=== PATIENT | female | born 1970 ===

== ENCOUNTER 2020-09-13 15:01 | Observation (INO) | payer BC, OTHER ==
[2020-09-13] MEDS ORDERED: Sodium Chloride 0.9% 2.5 ML Syringe FLUSH PRN (15:22)
[2020-09-13] MEDS ORDERED: Sodium Chloride 0.9% 1,000 ML IV ONE (15:22)
[2020-09-13] MEDS ORDERED: Sodium Chloride 0.9% 10 ML Syringe FLUSH PRN (15:22)
--- NOTE | 2020-09-13 15:29 | PCM.EKG ---
#1 Interpretation EKG Date: 09/13/20 Time: 15:30 Rhythm: NSR Rate (Beats/Min): 90 ST-T: Normal
--- NOTE | 2020-09-13 16:12 | EDM.PDOC ---
ED HPI GENERAL MEDICAL PROBLEM - General Chief Complaint: Respiratory Problem Stated Complaint: SOB Time Seen by Provider: 09/13/20 15:04 Source of Information: Reports: Patient History Limitations: Reports: No Limitations - History of Present Illness INITIAL COMMENTS - FREE TEXT/NARRATIVE: HISTORY AND PHYSICAL: History of present illness: The patient is a 49 year female who presents to the emergency room with complaints of shortness of breath that started at around 10:30 this a.m. She was diagnosed with Covid approximately 14 days ago and was scheduled to be out of quarantine at midnight tonight. For the last 3 days she has had increased chills, body aches, cough, decreased appetite and decreased fluid intake. She reports her cough as productive with yellow sputum. She did not appreciate any fever. She has taken NyQuil and Merlene-[place] for her symptoms. . Patient denies any fever, headache, change in vision, syncope or near syncope. Denies any chest pain, back pain. Denies any abdominal pain, nausea, vomiting, diarrhea, constipation or dysuria. Has not noted any blood in urine or stool. Review of systems: As per history of present illness and below otherwise all systems reviewed and negative. Past medical history: As per history of present illness and as reviewed below otherwise noncontr ibutory. Surgical history: As per history of present illness and as reviewed below otherwise noncontributory. Social history: See social history for further information Family history: As per history of present illness and as reviewed below otherwise noncontributory. Physical exam: General: Well developed and well nourished. Alert and orientated x 3. Nontoxic in appearance and in no acute distress. Vital signs are stable and have been reviewed by me. Nursing notes were reviewed. HEENT: Atraumatic, normocephalic, pupils equal and reactive bilaterally, negative for conjunctival pallor or scleral icterus, mucous membranes moist, throat clear, neck supple, nontender, trachea midline. No drooling or trismus noted. No meningeal signs. No hot potato voice noted. Lungs: Clear to auscultation bilaterally. No wheezes, rales, or rhonchi. Chest nontender. Normal work of breathing, no accessory muscles used. Heart: S1S2, regular rate and rhythm without overt murmur, gallops, or rubs. No JVD. No peripheral edema Abdomen: Soft, nondistended, nontender. Normoactive bowel sounds. Negative for masses or costovertebral tenderness. Skin: Intact, warm, dry. No lesions or rashes noted. Hematologic: No petechiae or purpra. Mucosa appropriate color and normal nail bed color and refill. Extremities: Atraumatic, moves all extremities per self without difficulty or deficits, negative for cords or calf pain. Neurovascular unremarkable. Neuro: Awake, alert, oriented. Cranial nerves II through XII unremarkable. Cerebellum unremarkable. Motor and sensory unremarkable throughout. Exam nonfocal. Psychiatric: Mood and affect are appropriate. Normal thought process. Answering questions appropriately. Notes: *This patient was seen and evaluated during the 2019 SARS-CoV-2 novel coronavirus pandemic period. Community viral transmission is ongoing at time of this encounter and the emergency department is operating under pandemic response procedures. After discussion with the patient she has agreeable to labs, chest x-ray, EKG, troponin, and IV fluids. The patient's D-dimer is elevated at 1.05, a PE study is ordered. The patient is informed. The patient is allergic to contrast and is unable to get CAT scan. Contacted Dr. Paris, hospitalist, regarding admission to hospital for overnight observation due to sudden onset of shortness of breath. Dr. Paris is agreeable with admission. The patient is informed and is agreeable with admission. The patient's potassium is low at 3.0 I have talked with the patient about today's findings, in addition to providing specific details for plan of care. Diagnostics: CBC, CMP, troponin, D-dimer, EKG, CXR Therapeutics: IV fluids Impression: Shortness of breath Hypokalemia Plan: Patient is to be admitted to observation. Definitive disposition and diagnosis as appropriate pending reevaluation and review of above. - Related Data Allergies Allergy/AdvReac Type Severity Reaction Status Date / Time Iodinated Contrast Media Allergy Cannot Verified 09/13/20 15:24 Remember Home Meds: Home Meds . [No Known Home Meds] 09/13/20 [History] Past Medical History - Past Health History Medical/Surgical History: Denies Medical/Surgical History - Infectious Disease History Infectious Disease History: Reports: None - Past Surgical History GI Surgical History: Reports: Cholecystectomy Female Surgical History: Reports: Section Social & Family History - Family History Family Medical History: No Pertinent Family History - Tobacco Use Tobacco Use Status *Q: Never Tobacco User - Recreational Drug Use Recreational Drug Use: No ED ROS GENERAL - Review of Systems Review Of Systems: Comprehensive ROS is negative, except as noted in HPI. ED EXAM, GENERAL - Physical Exam Exam: See Below (See below) Course - Vital Signs Last Recorded V/S: Last Vital Signs Temp 97.8 F 09/13/20 15:25 Pulse 104 H 09/13/20 15:25 Resp 18 09/13/20 15:25 BP 146/94 H 09/13/20 15:25 Pulse Ox 94 L 09/13/20 15:25 - Orders/Labs/Meds Orders: Active Orders 24 hr Category Date Time Status EKG Documentation Completion [RC] STAT Care 09/13/20 15:19 Active PE Chest [Ang Chest] [CT] Stat Exams 09/13/20 16:13 Ordered Sodium Chloride 0.9% [Saline Flush] Med 09/13/20 15:22 Active 10 ml FLUSH ASDIRECTED PRN Sodium Chloride 0.9% [Saline Flush] Med 09/13/20 15:22 Active 2.5 ml FLUSH ASDIRECTED PRN Saline Lock Insert [OM.PC] Stat Oth 09/13/20 15:22 Ordered Medication Orders Sodium Chloride (Sodium Chloride 0.9% 10 Ml Syringe) 10 ml FLUSH ASDIRECTED PRN PRN Reason: Keep Vein Open Last Admin: 09/13/20 15:47 Dose: 10 ml Documented by: [id number] Sodium Chloride (Sodium Chloride 0.9% 2.5 Ml Syringe) 2.5 ml FLUSH ASDIRECTED PRN PRN Reason: Keep Vein Open Last Admin: 09/13/20 15:47 Dose: 2.5 ml Documented by: [id number] Labs: Laboratory Tests 09/13/20 09/13/20 09/13/20 Range/Units 15:41 15:41 15:41 WBC 4.04 (4.0-11.0) K/uL RBC 4.78 (4.30-5.90) M/uL Hgb 12.7 (12.0-16.0) g/dL Hct 38.2 (36.0-46.0) % MCV 79.9 L (80.0-98.0) fL MCH 26.6 L (27.0-32.0) pg MCHC 33.2 (31.0-37.0) g/dL RDW Std Deviation 37.6 (28.0-62.0) fl RDW Coeff of Joanne 13 (11.0-15.0) % Plt Count 241 (150-400) K/uL MPV 9.60 (7.40-12.00) fL Neut % (Auto) 59.7 (48.0-80.0) % Lymph % (Auto) 29.0 (16.0-40.0) % Gregg % (Auto) 10.1 (0.0-15.0) % Eos % (Auto) 1.0 (0.0-7.0) % Baso % (Auto) 0.2 (0.0-1.5) % Neut # (Auto) 2.4 (1.4-5.7) K/uL Lymph # (Auto) 1.2 (0.6-2.4) K/uL Gregg # (Auto) 0.4 (0.0-0.8) K/uL Eos # (Auto) 0.0 (0.0-0.7) K/uL Baso # (Auto) 0.0 (0.0-0.1) K/uL Nucleated RBC % 0.0 /100WBC Nucleated RBCs # 0 K/uL D-Dimer, Quantitative 1.05 H (0.0-0.50) mg/L FEU Sodium 138 (136-145) mmol/L Potassium 3.0 L (3.5-5.1) mmol/L Chloride 102 (98-107) mmol/L Carbon Dioxide 24.6 (21.0-32.0) mmol/L BUN 15 (7.0-18.0) mg/dL Creatinine 0.7 (0.6-1.0) mg/dL Est Cr Clr Drug Dosing 69.83 mL/min Estimated GFR (MDRD) > 60.0 ml/min Glucose 102 (74-106) mg/dL Calcium 9.0 (8.5-10.1) mg/dL Total Bilirubin 0.3 (0.2-1.0) mg/dL AST 42 H (15-37) IU/L ALT 71 H (14-63) IU/L Alkaline Phosphatase 197 H (46-116) U/L Troponin I < 0.050 (0.000-0.056) ng/mL Total Protein 8.3 H (6.4-8.2) g/dL Albumin 3.2 L (3.4-5.0) g/dL Globulin 5.1 H (2.6-4.0) g/dL Albumin/Globulin Ratio 0.6 L (0.9-1.6) Meds: Medications Generic Name Dose Route Start Last Admin Trade Name Freq PRN Reason Stop Dose Admin Sodium Chloride 10 ml 09/13/20 15:22 09/13/20 15:47 Sodium Chloride 0.9% 10 Ml Syringe FLUSH 10 ml ASDIRECTED PRN Administration Keep Vein Open Sodium Chloride 2.5 ml 09/13/20 15:22 09/13/20 15:47 Sodium Chloride 0.9% 2.5 Ml Syringe FLUSH 2.5 ml ASDIRECTED PRN Administration Keep Vein Open Discontinued Medications Generic Name Dose Route Start Last Admin Trade Name Freq PRN Reason Stop Dose Admin Sodium Chloride 1,000 mls @ 999 mls/hr 09/13/20 15:22 09/13/20 15:46 Normal Saline IV 09/13/20 16:22 999 mls/hr .Bolus ONE Administration Departure - Departure Time of Disposition: 17:21 Disposition: Refer to Observation Condition: Good Clinical Impression: Shortness of breath - Discharge Information *PRESCRIPTION DRUG MONITORING PROGRAM REVIEWED*: Not Applicable *COPY OF PRESCRIPTION DRUG MONITORING REPORT IN PATIENT HERRERA: Not Applicable Referrals: PCP,None [Primary Care Provider] - Forms: ED Department Discharge Sepsis Event Note (ED) - Evaluation Sepsis Screening Result: No Definite Risk - Focused Exam Vital Signs: Vital Signs Temp Pulse Resp BP Pulse Ox 09/13/20 15:25 97.8 F 104 H 18 146/94 H 94 L - My Orders Last 24 Hours: My Active Orders 09/13/20 15:19 EKG Documentation Completion [RC] STAT 09/13/20 15:22 Sodium Chloride 0.9% [Saline Flush] 10 ml FLUSH ASDIRECTED PRN Sodium Chloride 0.9% [Saline Flush] 2.5 ml FLUSH ASDIRECTED PRN Saline Lock Insert [OM.PC] Stat 09/13/20 16:13 PE Chest [Ang Chest] [CT] Stat - Assessment/Plan Last 24 Hours: My Active Orders 09/13/20 15:19 EKG Documentation Completion [RC] STAT 09/13/20 15:22 Sodium Chloride 0.9% [Saline Flush] 10 ml FLUSH ASDIRECTED PRN Sodium Chloride 0.9% [Saline Flush] 2.5 ml FLUSH ASDIRECTED PRN Saline Lock Insert [OM.PC] Stat 09/13/20 16:13 PE Chest [Ang Chest] [CT] Stat
[2020-09-13 16:31] LABS: BLOOD UREA NITROGEN,BUN 15 mg/dL (7.0-18.0); CARBON DIOXIDE,CO2 24.6 mmol/L (21.0-32.0); CHLORIDE,CL 102 mmol/L (98-107); GLUCOSE RANDOM 102 mg/dL (74-106); SODIUM,NA 138 mmol/L (136-145)
--- NOTE | 2020-09-13 16:48 | CR ---
INDICATION: Shortness of breath TECHNIQUE: Chest 2 views. COMPARISON: None FINDINGS: Normal cardiomediastinal silhouette and pulmonary vasculature. Patchy infiltrates in a perihilar distribution. No effusion or pneumothorax. No acute osseous abnormality. IMPRESSION: Perihilar infiltrates concerning for infection, including COVID-19. Dictated by Joycelyn Allen MD @ Sep 13 2020 4:46PM Signed by Dr. Joycelyn Allen @ Sep 13 2020 4:47PM
--- NOTE | 2020-09-13 17:29 | PCM.HP.2 ---
H&P History of Present Illness - General Date of Service: 09/13/20 Admit Problem/Dx: Admission Diagnosis/Problem Admission Diagnosis/Problem Shortness of breath - History of Present Illness Initial Comments - Free Text/Narative: 49-year-old female admitted to the floor for hypoxia secondary to Covid infection. Patient states that she was diagnosed with Covid on September 01. Patient states that today was supposed to be her last day of quarantine. Patient states this morning that she began to have shortness of breath and a slight cough. Patient denies fever, chills, nausea, vomiting, abdominal pain, headaches. Patient denies loss of sense in taste at this time but did state that she did have the symptoms when she first got the Covid infection. Patient states decreased appetite and decreased fluid today. White blood cell count 4.4, chest x-ray reveals perihilar infiltrates concerning for infection. Hypokalemia noted with potassium level of 3.0. D-dimer elevated at 1.05, CT-A could not be performed as patient is allergic to contrast media, states shortness of breath and chest pain with contrast. Admit patient to the medical service for observation. Will monitor patient's oxygen saturation, respiratory rate as well as monitor oxygen saturation while patient is walking. Treatment to be tailored based on oxygen saturations. - Related Data Allergies/Adverse Reactions: Allergies Allergy/AdvReac Type Severity Reaction Status Date / Time Iodinated Contrast Media Allergy Cannot Verified 09/13/20 18:46 Remember Home Medications: Home Meds . [No Known Home Meds] 09/13/20 [History] Past Medical History - Past Health History Medical/Surgical History: Denies Medical/Surgical History - Infectious Disease History Infectious Disease History: Reports: None - Past Surgical History GI Surgical History: Reports: Cholecystectomy Female Surgical History: Reports: Section Social & Family History - Family History Family Medical History: No Pertinent Family History - Tobacco Use Tobacco Use Status *Q: Never Tobacco User - Recreational Drug Use Recreational Drug Use: No H&P Review of Systems - Review of Systems: Review Of Systems: See Below General: Reports: Chills, Decreased Appetite. Denies: Fever, Weakness Pulmonary: Reports: Shortness of Breath, Wheezing (mild), Cough Cardiovascular: Denies: Chest Pain, Edema Gastrointestinal: Denies: Abdominal Pain, Nausea, Vomiting Psychiatric: Denies: Confusion Neurological: Denies: Confusion Exam - Exam Exam: See Below - Vital Signs Vital Signs: Last Vital Signs Temp 97.8 F 09/13/20 15:25 Pulse 104 H 09/13/20 15:25 Resp 18 09/13/20 15:25 BP 146/94 H 09/13/20 15:25 Pulse Ox 94 L 09/13/20 15:25 Weight: 110 lb - Exam Quality Assessment: No: Supplemental Oxygen General: Alert, Oriented HEENT: Conjunctiva Clear Lungs: Clear to Auscultation, Wheezing (mild) Cardiovascular: Regular Rate, Regular Rhythm GI/Abdominal Exam: Normal Bowel Sounds, Soft, Non-Tender Extremities: No Pedal Edema Neuro Extensive - Mental Status: Alert, Oriented x3 Psychiatric: Alert - Patient Data Lab Results Last 24 hrs: Laboratory Results - last 24 hr 09/13/20 09/13/20 09/13/20 Range/Units 15:41 15:41 15:41 WBC 4.04 (4.0-11.0) K/uL RBC 4.78 (4.30-5.90) M/uL Hgb 12.7 (12.0-16.0) g/dL Hct 38.2 (36.0-46.0) % MCV 79.9 L (80.0-98.0) fL MCH 26.6 L (27.0-32.0) pg MCHC 33.2 (31.0-37.0) g/dL RDW Std Deviation 37.6 (28.0-62.0) fl RDW Coeff of Joanne 13 (11.0-15.0) % Plt Count 241 (150-400) K/uL MPV 9.60 (7.40-12.00) fL Neut % (Auto) 59.7 (48.0-80.0) % Lymph % (Auto) 29.0 (16.0-40.0) % Porter % (Auto) 10.1 (0.0-15.0) % Eos % (Auto) 1.0 (0.0-7.0) % Baso % (Auto) 0.2 (0.0-1.5) % Neut # (Auto) 2.4 (1.4-5.7) K/uL Lymph # (Auto) 1.2 (0.6-2.4) K/uL Porter # (Auto) 0.4 (0.0-0.8) K/uL Eos # (Auto) 0.0 (0.0-0.7) K/uL Baso # (Auto) 0.0 (0.0-0.1) K/uL Nucleated RBC % 0.0 /100WBC Nucleated RBCs # 0 K/uL D-Dimer, Quantitative 1.05 H (0.0-0.50) mg/L FEU Sodium 138 (136-145) mmol/L Potassium 3.0 L (3.5-5.1) mmol/L Chloride 102 (98-107) mmol/L Carbon Dioxide 24.6 (21.0-32.0) mmol/L BUN 15 (7.0-18.0) mg/dL Creatinine 0.7 (0.6-1.0) mg/dL Est Cr Clr Drug Dosing 69.83 mL/min Estimated GFR (MDRD) > 60.0 ml/min Glucose 102 (74-106) mg/dL Calcium 9.0 (8.5-10.1) mg/dL Total Bilirubin 0.3 (0.2-1.0) mg/dL AST 42 H (15-37) IU/L ALT 71 H (14-63) IU/L Alkaline Phosphatase 197 H (46-116) U/L Troponin I < 0.050 (0.000-0.056) ng/mL Total Protein 8.3 H (6.4-8.2) g/dL Albumin 3.2 L (3.4-5.0) g/dL Globulin 5.1 H (2.6-4.0) g/dL Albumin/Globulin Ratio 0.6 L (0.9-1.6) Result Diagrams: 09/13/20 15:41 09/13/20 15:41 Sepsis Event Note - Evaluation Sepsis Screening Result: No Definite Risk - Focused Exam Vital Signs: Vital Signs Temp Pulse Resp BP Pulse Ox 09/13/20 15:25 97.8 F 104 H 18 146/94 H 94 L - Problem List (1) COVID-19 SNOMED Code(s): 006337294 ICD Code: U07.1 - COVID-19 Status: Acute Current Visit: Yes (2) Shortness of breath SNOMED Code(s): 527411740 ICD Code: R06.02 - SHORTNESS OF BREATH Status: Acute Current Visit: Yes Problem List Initiated/Reviewed/Updated: Yes Orders Last 24hrs: Active Orders 24 hr Category Date Time Status Admission Status [Patient Status] [ADT] Stat ADT 09/13/20 17:19 Active EKG Documentation Completion [RC] STAT Care 09/13/20 15:19 Active PE Chest [Ang Chest] [CT] Stat Exams 09/13/20 16:13 Ordered Sodium Chloride 0.9% [Saline Flush] Med 09/13/20 15:22 Active 10 ml FLUSH ASDIRECTED PRN Sodium Chloride 0.9% [Saline Flush] Med 09/13/20 15:22 Active 2.5 ml FLUSH ASDIRECTED PRN Saline Lock Insert [OM.PC] Stat Oth 09/13/20 15:22 Ordered Medication Orders Sodium Chloride (Sodium Chloride 0.9% 10 Ml Syringe) 10 ml FLUSH ASDIRECTED PRN PRN Reason: Keep Vein Open Last Admin: 09/13/20 15:47 Dose: 10 ml Documented by: [id number] Sodium Chloride (Sodium Chloride 0.9% 2.5 Ml Syringe) 2.5 ml FLUSH ASDIRECTED PRN PRN Reason: Keep Vein Open Last Admin: 09/13/20 15:47 Dose: 2.5 ml Documented by: [id number] Assessment/Plan Comment:: Hypoxia secondary to COVID-19 infection. Patient admitted to observation. On admission patient has O2 saturation 94% on room air, RR 18, HR 89. Prior to starting treatment with dexamethasone and remdesivir we will monitor patient's O2 saturation overnight, and measure oxygen saturation when patient is walking to determine severity of hypoxia. DuoNebs Q4H, oxygen as needed titrate at or above 88% O2 saturation, prone positioning, incentive spirometry. Severe Vit D deficiency- 9.4, started on 5000iu daily Possible CAP secondary to viral infection- Levaquin 750mg Q24H Regular diet, Lovenox DVT prophylaxis, Tessalon pearls
[2020-09-13] MEDS ORDERED: Acetaminophen 325 MG Tab PO PRN (17:40)
[2020-09-13] MEDS ORDERED: Potassium Chloride 20 MEQ Tab.ER PO ONE (17:40)
[2020-09-13] MEDS ORDERED: Enoxaparin 40 MG/0.4 ML Syringe SUBCUT SCH (17:45)
[2020-09-13] MEDS ORDERED: Albuterol/Ipratropium 3.0-0.5 MG/3 ML Neb Soln NEB PRN (18:35)
[2020-09-13] MEDS ORDERED: Benzonatate 100 MG Cap PO PRN (18:56)
[2020-09-13] MEDS ORDERED: Levofloxacin/Dextrose 5%-Water 750 MG in Premix Bag 1 BAG IV SCH (19:15)
[2020-09-13] MEDS: Cholecalciferol (Vitamin D3) 25 MCG Tab PO SCH (20:05)
[2020-09-14 06:01] LABS: BLOOD UREA NITROGEN,BUN 8 mg/dL (7.0-18.0); CARBON DIOXIDE,CO2 25.4 mmol/L (21.0-32.0); CHLORIDE,CL 105 mmol/L (98-107); GLUCOSE RANDOM 95 mg/dL (74-106); POTASSIUM,K 3.8 mmol/L (3.5-5.1); SODIUM,NA 141 mmol/L (136-145)
[2020-09-14] MEDS: Cholecalciferol (Vitamin D3) 25 MCG Tab PO SCH (08:01)
--- NOTE | 2020-09-14 11:04 | PCM.DCSUM1 ---
Discharge Summary - Hospital Course Free Text/Narrative:: 49-year-old female admitted to the floor for shortness of breath secondary to Covid infection. Patient states that she was diagnosed with Covid on September 01. Patient states that today was supposed to be her last day of quarantine. Patient states this morning that she began to have shortness of breath and a slight cough. Patient denies fever, chills, nausea, vomiting, abdominal pain, headaches. Patient denies loss of sense in taste at this time but did state that she did have the symptoms when she first got the Covid infection. Patient states decreased appetite and decreased fluid today. White blood cell count 4.4, chest x-ray reveals perihilar infiltrates concerning for infection. Hypokalemia noted with potassium level of 3.0. D-dimer elevated at 1.05, CT-A could not be performed as patient is allergic to contrast media, states shortness of breath and chest pain with contrast. Patient was admitted to the medical service overnight for observation. Patient's oxygen saturations throughout admission range between 94-97% on room air. Patient was also started on levofloxacin to treat possible secondary bacterial infection. Patient also started on vitamin D as patient's vitamin D upon testing was severely low. At discharge patient states that she felt significantly better, denies any shortness of breath, states that she was able to walk around in the room go to the bathroom without any difficulties. Patient discharged home on 4 days of Levaquin and 7 days of vitamin D3. Patient to follow-up with her primary care physician for any medication adjustments. - Discharge Data Discharge Date: 09/14/20 Discharge Disposition: Home, Self-Care 01 Condition: Stable - Referral to Home Health Primary Care Physician: PCP None - Discharge Diagnosis/Problem(s) (1) COVID-19 SNOMED Code(s): 192221757 ICD Code: U07.1 - COVID-19 Status: Acute Current Visit: Yes (2) Shortness of breath SNOMED Code(s): 841591540 ICD Code: R06.02 - SHORTNESS OF BREATH Status: Acute Current Visit: Yes - Patient Instructions Diet: Heart Healthy Diet Activity: As Tolerated Notify Provider of: Fever, Increased Pain, Swelling and Redness, Nausea and/or Vomiting Other/Special Instructions: Patient to report any side effects from antibiotic usage such as muscle pain, joint pain, tendon pain to her primary care physician and discontinue antibiotic. - Discharge Plan *PRESCRIPTION DRUG MONITORING PROGRAM REVIEWED*: Not Applicable *COPY OF PRESCRIPTION DRUG MONITORING REPORT IN PATIENT HERRERA: Not Applicable Prescriptions/Med Rec: Levofloxacin 750 mg PO DAILY 4 Days #4 tablet Cholecalciferol (Vitamin D3) [Vitamin D3] 5,000 unit PO DAILY 7 Days #7 cap Home Medications: Home Meds Cholecalciferol (Vitamin D3) [Vitamin D3] 5,000 unit PO DAILY 7 Days #7 cap 09/14/20 [Rx] Levofloxacin 750 mg PO DAILY 4 Days #4 tablet 09/14/20 [Rx] Patient Handouts: Hypoxia, COVID-19 Frequently Asked Questions Forms: ED Department Discharge Referrals: Chris Truong MD [Ordering Only Provider] - 10/04/20 9:45 am - Discharge Summary/Plan Comment DC Time >30 min.: Yes - General Info Date of Service: 09/14/20 Subjective Update: Patient states she feels significantly better. Denies chest pain, shortness of breath, headache, fever, chills, nausea, vomiting abdominal pain. Patient states that she would like to go home today. - Review of Systems General: Denies: Fever, Chills Pulmonary: Denies: Shortness of Breath Cardiovascular: Denies: Chest Pain, Edema Gastrointestinal: Denies: Abdominal Pain, Nausea, Vomiting - Patient Data Vitals - Most Recent: Last Vital Signs Temp 98.4 F 09/14/20 07:53 Pulse 85 09/14/20 07:53 Resp 15 09/14/20 07:53 BP 137/93 H 09/14/20 07:53 Pulse Ox 94 L 09/14/20 07:53 Weight - Most Recent: 109 lb 3.2 oz I&O - Last 24 hours: Intake & Output 09/13/20 09/14/20 09/14/20 22:59 06:59 14:59 Intake Total 700 Output Total 600 Balance 100 Lab Results - Last 24 hrs: Laboratory Results - last 24 hr 09/13/20 09/13/20 09/13/20 Range/Units 15:41 15:41 15:41 WBC 4.04 (4.0-11.0) K/uL RBC 4.78 (4.30-5.90) M/uL Hgb 12.7 (12.0-16.0) g/dL Hct 38.2 (36.0-46.0) % MCV 79.9 L (80.0-98.0) fL MCH 26.6 L (27.0-32.0) pg MCHC 33.2 (31.0-37.0) g/dL RDW Std Deviation 37.6 (28.0-62.0) fl RDW Coeff of Joanne 13 (11.0-15.0) % Plt Count 241 (150-400) K/uL MPV 9.60 (7.40-12.00) fL Neut % (Auto) 59.7 (48.0-80.0) % Lymph % (Auto) 29.0 (16.0-40.0) % [place] % (Auto) 10.1 (0.0-15.0) % Eos % (Auto) 1.0 (0.0-7.0) % Baso % (Auto) 0.2 (0.0-1.5) % Neut # (Auto) 2.4 (1.4-5.7) K/uL Lymph # (Auto) 1.2 (0.6-2.4) K/uL [place] # (Auto) 0.4 (0.0-0.8) K/uL Eos # (Auto) 0.0 (0.0-0.7) K/uL Baso # (Auto) 0.0 (0.0-0.1) K/uL Nucleated RBC % 0.0 /100WBC Nucleated RBCs # 0 K/uL D-Dimer, Quantitative 1.05 H (0.0-0.50) mg/L FEU Sodium 138 (136-145) mmol/L Potassium 3.0 L (3.5-5.1) mmol/L Chloride 102 (98-107) mmol/L Carbon Dioxide 24.6 (21.0-32.0) mmol/L BUN 15 (7.0-18.0) mg/dL Creatinine 0.7 (0.6-1.0) mg/dL Est Cr Clr Drug Dosing 69.83 mL/min Estimated GFR (MDRD) > 60.0 ml/min Glucose 102 (74-106) mg/dL Calcium 9.0 (8.5-10.1) mg/dL Magnesium (1.8-2.4) mg/dL Total Bilirubin 0.3 (0.2-1.0) mg/dL AST 42 H (15-37) IU/L ALT 71 H (14-63) IU/L Alkaline Phosphatase 197 H (46-116) U/L Troponin I < 0.050 (0.000-0.056) ng/mL Total Protein 8.3 H (6.4-8.2) g/dL Albumin 3.2 L (3.4-5.0) g/dL Globulin 5.1 H (2.6-4.0) g/dL Albumin/Globulin Ratio 0.6 L (0.9-1.6) Vitamin D 25-Hydroxy (30.0-100.0) ng/mL 09/13/20 09/14/20 09/14/20 Range/Units 15:41 05:20 05:20 WBC 3.27 L (4.0-11.0) K/uL RBC 4.55 (4.30-5.90) M/uL Hgb 11.7 L (12.0-16.0) g/dL Hct 36.4 (36.0-46.0) % MCV 80.0 (80.0-98.0) fL MCH 25.7 L (27.0-32.0) pg MCHC 32.1 (31.0-37.0) g/dL RDW Std Deviation 37.7 (28.0-62.0) fl RDW Coeff of Joanne 13 (11.0-15.0) % Plt Count 250 (150-400) K/uL MPV 9.70 (7.40-12.00) fL Neut % (Auto) 44.0 L (48.0-80.0) % Lymph % (Auto) 40.4 H (16.0-40.0) % [place] % (Auto) 11.0 (0.0-15.0) % Eos % (Auto) 4.0 (0.0-7.0) % Baso % (Auto) 0.6 (0.0-1.5) % Neut # (Auto) 1.4 (1.4-5.7) K/uL Lymph # (Auto) 1.3 (0.6-2.4) K/uL [place] # (Auto) 0.4 (0.0-0.8) K/uL Eos # (Auto) 0.1 (0.0-0.7) K/uL Baso # (Auto) 0.0 (0.0-0.1) K/uL Nucleated RBC % 0.0 /100WBC Nucleated RBCs # 0 K/uL D-Dimer, Quantitative (0.0-0.50) mg/L FEU Sodium 141 (136-145) mmol/L Potassium 3.8 (3.5-5.1) mmol/L Chloride 105 (98-107) mmol/L Carbon Dioxide 25.4 (21.0-32.0) mmol/L BUN 8 (7.0-18.0) mg/dL Creatinine 0.6 (0.6-1.0) mg/dL Est Cr Clr Drug Dosing 81.47 mL/min Estimated GFR (MDRD) > 60.0 ml/min Glucose 95 (74-106) mg/dL Calcium 8.2 L (8.5-10.1) mg/dL Magnesium 2.4 (1.8-2.4) mg/dL Total Bilirubin 0.6 (0.2-1.0) mg/dL AST 34 (15-37) IU/L ALT 58 (14-63) IU/L Alkaline Phosphatase 180 H (46-116) U/L Troponin I (0.000-0.056) ng/mL Total Protein 7.5 (6.4-8.2) g/dL Albumin 2.9 L (3.4-5.0) g/dL Globulin 4.6 H (2.6-4.0) g/dL Albumin/Globulin Ratio 0.6 L (0.9-1.6) Vitamin D 25-Hydroxy 9.4 L (30.0-100.0) ng/mL Med Orders - Current: Current Medications Acetaminophen (Acetaminophen 325 Mg Tab) 650 mg PO Q4H PRN PRN Reason: Pain/Fever Albuterol/Ipratropium (Albuterol/Ipratropium 3.0-0.5 Mg/3 Ml Neb Soln) 3 ml NEB Q4HRRT PRN PRN Reason: Dyspnea Benzonatate (Benzonatate 100 Mg Cap) 100 mg PO TID PRN PRN Reason: Cough Last Admin: 09/13/20 22:09 Dose: 100 mg Documented by: Cholecalciferol (Cholecalciferol (Vitamin D3) 25 Mcg Tab) 125 mcg PO DAILY [facility] Last Admin: 09/14/20 08:01 Dose: 125 mcg Documented by: Enoxaparin Sodium (Enoxaparin 40 Mg/0.4 Ml Syringe) 40 mg SUBCUT Q24H [facility] Last Admin: 09/13/20 18:49 Dose: 40 mg Documented by: Levofloxacin/Dextrose 750 mg/ (Premix) 150 mls @ 100 mls/hr IV Q24H [facility] Last Admin: 09/13/20 20:04 Dose: 100 mls/hr Documented by: Sodium Chloride (Sodium Chloride 0.9% 10 Ml Syringe) 10 ml FLUSH ASDIRECTED PRN PRN Reason: Keep Vein Open Last Admin: 09/13/20 15:47 Dose: 10 ml Documented by: Sodium Chloride (Sodium Chloride 0.9% 2.5 Ml Syringe) 2.5 ml FLUSH ASDIRECTED PRN PRN Reason: Keep Vein Open Last Admin: 09/13/20 15:47 Dose: 2.5 ml Documented by: Discontinued Medications Sodium Chloride (Normal Saline) 1,000 mls @ 999 mls/hr IV .Bolus ONE Stop: 09/13/20 16:22 Last Admin: 09/13/20 15:46 Dose: 999 mls/hr Documented by: Potassium Chloride (Potassium Chloride 20 Meq Tab.Er) 40 meq PO ONETIME ONE Stop: 09/13/20 17:41 Last Admin: 09/13/20 18:48 Dose: 40 meq Documented by: - Exam General: Reports: Alert, Oriented Lungs: Reports: Normal Respiratory Effort Cardiovascular: Reports: Regular Rate, Regular Rhythm Extremities: No Pedal Edema Psy/Mental Status: Reports: Alert
== END 2020-09-14 11:45 | disposition home or self-care (01) ==
LOC: MW.ED 15:01 → MW.MS 17:19
PROVIDERS: ADMIT Internal Medicine; ATTEND Internal Medicine
DX: U07.1 COVID-19 (principal); R06.02 Shortness of breath; E55.9 Vitamin D deficiency, unspecified; E87.6 Hypokalemia; Z91.041 Radiographic dye allergy status; Z79.899 Other long term (current) drug therapy
CPT/HCPCS: 36415; 71046; 80053; 82306; 83735; 84484; 85025; 85379; 93005; 96365; 96372; 99285; A9270; G0378; J1650; J1956; J7030; 93010; 99284

== ENCOUNTER 2022-03-03 08:20 | Emergency (ER) | payer OTHER ==
[2022-03-03] MEDS ORDERED: Lactated Ringers 1,000 ML IV ONE (09:47)
[2022-03-03] MEDS ORDERED: Ketorolac 30 MG/ML SDV IVPUSH ONE (09:47)
[2022-03-03] MEDS ORDERED: Metoclopramide 10 MG/2 ML SDV IVPUSH ONE (09:48)
== END 2022-03-03 13:15 | disposition home or self-care (01) ==
LOC: MW.ED 08:20
DX: R51.9 Headache, unspecified (principal); Z91.041 Radiographic dye allergy status; Z86.16 Personal history of COVID-19
CPT/HCPCS: 71045; 96361; 96374; 96375; 99284; J1885; J2765; J7120

== ENCOUNTER 2024-02-15 19:41 | Emergency (ER) | payer SELFPAY ==
[2024-02-15 21:19] LABS: CORONAVIRUS COVID-19 NAA NEGATIVE (NEGATIVE); INFLUENZA A NAA NEGATIVE (NEGATIVE); INFLUENZA B NAA NEGATIVE (NEGATIVE)
[2024-02-15] MEDS: Amoxicillin/Clavulanate K 875-125 MG Tab PO ONE (21:33)
== END 2024-02-15 21:33 | disposition home or self-care (01) ==
LOC: MW.ED 19:41
DX: J02.9 Acute pharyngitis, unspecified (principal); Z90.49 Acquired absence of other specified parts of digestive tract; Z91.041 Radiographic dye allergy status; Z75.8 Other problems related to medical facilities and other health care
CPT/HCPCS: 0240U; 87651; 99283; A9270